=== PATIENT | male | born 1980 | race Hispanic/Latino ===

== ENCOUNTER 2021-12-30 10:00 | Inpatient (IN) | payer OTHER ==
[~2021-12-30] VITALS: Ht 180.3 cm; Wt 155.3 kg
[2021-12-30 11:50] VITALS: BP 140/80
[2021-12-30 12:23] LABS: BASOPHILS % (AUTO) 0.4 % (0.0-5.0); EOSINOPHILS % (AUTO) 0.4 % (0.0-8.0); HEMATOCRIT 47.7 % (42-54); LYMPHOCYTES % (AUTO) 25.5 % (21.0-51.0); MEAN CORPUSCULAR HEMOGLOBIN 28.7 pg (27.0-33.0); MEAN CORPUSCULAR HGB CONC 32.7 g/dL (32.0-36.0); MEAN CORPUSCULAR VOLUME 87.7 fL (79-99); MONOCYTES % (AUTO) 7.3 % (3.0-13.0); NEUTROPHILS % (AUTO) 66.1 % (40.0-77.0); PLATELET COUNT (AUTO) 218 K/uL (130-400); RED BLOOD CELL COUNT(AUTO) 5.44 MIL/uL (4.50-6.20); RED CELL DISTRIBUTION WIDTH 12.7 % (11.0-15.5); WHITE BLOOD COUNT (AUTO) 6.9 K/uL (4.8-10.8)
[2021-12-30 12:27] LABS: APPEARANCE,URINE Clear (CLEAR); BILIRUBIN,URINE Negative (NEGATIVE); COLOR,URINE Yellow (YELLOW); GLUCOSE, URINE (UA) Negative (NEGATIVE); KETONES,URINE 15 mg/dL (NEGATIVE); LEUKOCYTE ESTERASE ,URINE Negative (NEGATIVE); NITRATE,URINE Negative (NEGATIVE); OCCULT BLOOD,URINE Negative (NEGATIVE); PROTEIN,URINE Negative (NEGATIVE); UROBILINOGEN,URINE 0.2 mg/dL (0.2-1.0)
[2021-12-30 12:33] LABS: CREATININE 0.7 mg/dL (0.5-1.5); POTASSIUM 4.5 mmol/L (3.5-5.1)
[2021-12-30 12:36] LABS: INR 1.16 (0.85-1.15); PROTHROMBIN TIME 12.5 SEC (9.6-11.6)
[2021-12-30 12:37] LABS: BACTERIA,URINE Rare /HPF (None Seen); PARTIAL THROMBOPLASTIN TIME 30.5 SEC (26.3-35.5); RBC,URINE 0-1 /HPF (0-1); SQUAMOUS EPITHELIAL CELL,UR Rare /HPF (0-2); WBC,URINE 0-1 /HPF (0-1)
[2022-01-01] MEDS ORDERED: LOSA100T58 PO (10:32)
[2022-01-02] VITALS (26 sets, daily range): BP systolic 119–158; BP diastolic 62–97
[2022-01-02] MEDS ORDERED: CEFAZOLIN SODIUM 1 GM VIAL IVP SCH (06:00)
[2022-01-02] MEDS ORDERED: BUPIVACAINE/EPI/PF 0.5% 30ML VIAL IJ ONE (06:40)
[2022-01-02] MEDS ORDERED: MAGNESIUM SULFATE 1 GM/2 ML VIAL ONE (06:48)
[2022-01-02] MEDS ORDERED: KETAMINE 50MG/ML SYRINGE 50 MG/ML DISP.SYRIN IV ONE (06:48)
[2022-01-02] MEDS ORDERED: PROPOFOL 1000 MG/100 ML 100 ML IV ONE ×2 (06:48→09:11)
[2022-01-02] MEDS ORDERED: DEXAMETHASONE SOD PHOSPHATE 10MG/ML 1ML VIAL ONE (06:53)
[2022-01-02] MEDS ORDERED: LIDOCAINE PF 100MG/5ML (2%) SYRINGE 5ML ONE ×6 (06:53→07:04)
[2022-01-02] MEDS ORDERED: ONDANSETRON 4MG INJ ONE (06:53)
[2022-01-02] MEDS ORDERED: SUCCINYLCHOLINE 200MG/10ML SYR ONE ×2 (06:53→07:28)
[2022-01-02] MEDS ORDERED: MIDAZOLAM HCL 1 MG/ML 2ML VIAL ONE (06:53)
[2022-01-02] MEDS ORDERED: PROPOFOL 10 MG/ML 20ML VIAL IV ONE (06:53)
[2022-01-02] MEDS ORDERED: FENTANYL CITRATE PF 50 MCG/1 ML 2ML VIAL ONE (06:54)
[2022-01-02] MEDS ORDERED: ROCURONIUM 10MG/1ML SYR 10 MG/ML ML ONE ×2 (06:54→08:48)
[2022-01-02] MEDS: CEFOXITIN SODIUM 2 GM VIAL ONE ×2 (06:55→08:05)
[2022-01-02] MEDS: LACTATED RINGERS 1000ML 1,000 ML IV SCH ×2 (06:55→09:50)
[2022-01-02] MEDS ORDERED: METHYLENE BLUE 5 MG/ML AMP ONE (07:03)
[2022-01-02] MEDS ORDERED: HEPARIN 5,000 UNIT VIAL ONE (07:25)
[2022-01-02] MEDS ORDERED: SCOPOLAMINE HYDROBROMIDE 1 EACH ADH..PATCH TD ONE (07:30)
[2022-01-02] MEDS ORDERED: SUGAMMADEX SODIUM 200 MG/2 ML VIAL IV ONE (09:25)
[2022-01-02] MEDS ORDERED: 0.9%NACL 10ML VIAL IVP PRN ×2 (10:00)
[2022-01-02] MEDS ORDERED: MEPERIDINE-PF 25 MG/ML SYG ONE ×2 (10:00→10:08)
[2022-01-02] MEDS ORDERED: POTASSIUM CHLORIDE 20MEQ/10ML 20 MEQ in DEXTROSE 5%-LACTATED RINGERS 1,000 ML IV SCH ×4 (10:00)
[2022-01-02] MEDS ORDERED: MEPERIDINE-PF 25 MG/ML SYG IVP PRN (13:30)
[2022-01-02] MEDS ORDERED: MORPHINE 2 MG SYG IM PRN ×2 (13:30)
[2022-01-02] MEDS ORDERED: LACTATED RINGERS 1000ML 1,000 ML IV SCH (13:30)
[2022-01-02] MEDS ORDERED: PHARMACY COMMUNICATION MISC SCH ×2 (13:30)
[2022-01-02] MEDS ORDERED: MORPHINE 4 MG SYG IM PRN (13:30)
[2022-01-02] MEDS ORDERED: HYDROMORPHONE PCA 10 MG/50 ML 50 ML IV SCH (13:30)
[2022-01-02] MEDS ORDERED: PROMETHAZINE HCL 25 MG/ML 1ML AMPULE IM PRN (14:00)
[2022-01-02] MEDS: FAMOTIDINE 20MG VIAL IV SCH (20:37)
[2022-01-03] VITALS: BP 105/69
[2022-01-03 04:00] VITALS: BP 134/74
[2022-01-03 07:30] VITALS: BP 136/83
[2022-01-03] MEDS: FAMOTIDINE 20MG VIAL IV SCH (08:45)
[2022-01-03] MEDS ORDERED: ENOXAPARIN SODIUM 30 MG/0.3 ML SQ SCH (09:00)
[2022-01-03] MEDS ORDERED: LOSARTAN 100 MG TABLET PO SCH (09:00)
[2022-01-03 11:25] VITALS: BP 117/73
[2022-01-03] MEDS ORDERED: ACET5ELI PO (12:05)
[2022-01-03] MEDS ORDERED: ONDA4TAB10 PO (12:07)
[2022-01-03] MEDS ORDERED: PROM6.254 PO (12:09)
== END 2022-01-03 12:44 | disposition home or self-care (01) | DRG 621 ==
LOC: DAHIP 01-02 06:22 → 4CH 01-02 11:06
PROVIDERS: ADMIT Surgery; ATTEND Surgery
PROC: 0DB64Z3 Excision of Stomach, Percutaneous Endoscopic Approach, Vertical (ICD-10-PCS; principal; 2022-01-02 07:39)
DX: E66.01 Morbid (severe) obesity due to excess calories (principal); Z68.42 Body mass index [BMI] 45.0-49.9, adult; G47.30 Sleep apnea, unspecified; I10 Essential (primary) hypertension
CPT/HCPCS: 36415; 80048; 81001; 85025; 85610; 85730; 87635; 93005; 94760; A4606; G0378; J0330; J0690; J0694; J1100; J1170; J1644; J1650; J2001; J2175; J2250; J2405; J2704; J3010; J3475; J3480; J3490; J7120; Q9968